=== PATIENT | male | born 1975 | race Caucasian/White ===

== ENCOUNTER 2017-11-09 22:01 | Emergency (ER) | payer MEDICAID ==
[~2017-11-09] VITALS: Ht 160 cm; Wt 82.0 kg
[2017-11-10] MEDS ORDERED: IBUPROFEN 600MG TABLET PO STA (01:03)
[2017-11-10] MEDS ORDERED: FAMOTIDINE 20MG TABLET PO ONE (01:15)
[2017-11-10 01:47] LABS: BASOPHILS % 0.8 % (0.0-2.0); EOSINOPHILS % 2.9 % (0.0-5.0); HEMATOCRIT. 45.6 % (42.0-52.0); HEMOGLOBIN. 15.8 g/dL (14.0-18.0); LYMPHOCYTES % 44.5 % (20.0-50.0); MEAN CORPUSCULAR HEMOGLOBIN 29.7 pg (28.0-32.0); MEAN CORPUSCULAR VOLUME 85.4 fL (80.0-94.0); MEAN PLATELET VOLUME 7.9 fl (7.4-10.4); MONOCYTES % 8.3 % (2.0-8.0); NEUTROPHILS % 43.5 % (40.0-76.0); PLATELET 222 x1000/uL (130-400); RED BLOOD CELL COUNT 5.33 mill/uL (4.7-6.1); RED CELL DISTRIBUTION WIDTH 13.1 % (11.6-14.6)
[2017-11-10 01:51] LABS: CHLORIDE 104 mEq/L (98-107)
[2017-11-10 04:39] LABS: CLARITY URINE CLEAR (CLEAR); COLOR URINE YELLOW (YELLOW); KETONES URINE NEGATIVE (NEGATIVE); LEUKOCYTE ESTERASE URINE NEGATIVE (NEGATIVE); NITRITE URINE NEGATIVE (NEGATIVE); OCCULT BLOOD URINE NEGATIVE (NEGATIVE); PH URINE 6.5 (4.5-8.0); PROTEIN URINE NEGATIVE (NEGATIVE); SPECIFIC GRAVITY URINE 1.018 (1.005-1.030); UROBILINOGEN URINE 0.2 E.U./dL (0.2-1.0)
[2017-11-10 05:39] VITALS: BP 124/71
== END 2017-11-10 05:44 | disposition home or self-care (01) ==
LOC: ER 22:56
DX: K59.00 Constipation, unspecified (principal); R10.11 Right upper quadrant pain; Z90.49 Acquired absence of other specified parts of digestive tract; E11.9 Type 2 diabetes mellitus without complications
CPT/HCPCS: 36415; 74018; 76705; 80053; 81003; 83690; 85025; 99285